=== PATIENT | male | born 1990 | race African-American/Black ===

== ENCOUNTER 2017-01-02 09:40 | Emergency (ER) | payer MEDICAID ==
[~2017-01-02] VITALS: Ht 180.3 cm; Wt 89.0 kg
[2017-01-02] MEDS ORDERED: SODIUM CHLORIDE 0.9% 1,000 ML IV ONE (09:51)
[2017-01-02] MEDS ORDERED: LORAZEPAM 2MG/ML CPJ ONE (09:58)
[2017-01-02] MEDS ORDERED: OLANZAPINE 10 MG/VIAL IM ONE (10:00)
[2017-01-02] MEDS ORDERED: LORAZEPAM 2MG/ML CPJ IM ONE (10:00)
[2017-01-02 10:09] LABS: BASOPHILS % 1.2 % (0.0-2.0); EOSINOPHILS % 0.5 % (0.0-5.0); HEMATOCRIT. 42.8 % (42.0-52.0); HEMOGLOBIN. 14.9 g/dL (14.0-18.0); LYMPHOCYTES % 41.6 % (20.0-50.0); MEAN CORPUSCULAR HEMOGLOBIN 29.5 pg (28.0-32.0); MEAN CORPUSCULAR VOLUME 84.5 fL (80.0-94.0); MEAN PLATELET VOLUME 7.4 fl (7.4-10.4); MONOCYTES % 8.2 % (2.0-8.0); NEUTROPHILS % 48.5 % (40.0-76.0); PLATELET 283 x1000/uL (130-400); RED BLOOD CELL COUNT 5.07 mill/uL (4.7-6.1); RED CELL DISTRIBUTION WIDTH 13.5 % (11.6-14.6)
[2017-01-02 10:22] LABS: CARBON DIOXIDE 25 mEq/L (21-32); CHLORIDE 105 mEq/L (98-107); ETHANOL BLOOD 227 mg/dL
[2017-01-02 11:14] LABS: *AMPHETAMINES SCREEN URINE NEGATIVE (NEGATIVE); *BARBITURATES SCREEN URINE NEGATIVE (NEGATIVE); *BENZODIAZEPINES SCREEN URINE NEGATIVE (NEGATIVE); *COCAINE SCREEN URINE PRESUMTIVE POSITIVE (NEGATIVE); CANNABINOID URINE SCREEN NEGATIVE (NEGATIVE); METHADONE URINE SCREEN NEGATIVE (NEGATIVE); OPIATES URINE SCREEN NEGATIVE (NEGATIVE); PHENCYCLIDINE URINE SCREEN NEGATIVE (NEGATIVE)
[2017-01-02 18:08] VITALS: BP 118/72
== END 2017-01-02 18:21 | disposition home or self-care (01) ==
LOC: ER 10:00
DX: R41.82 Altered mental status, unspecified (principal); F10.129 Alcohol abuse with intoxication, unspecified; F14.10 Cocaine abuse, uncomplicated
CPT/HCPCS: 36415; 80048; 80305; 80307; 80329; 85025; 96360; 96361; 96372; 99285; G0482; J2060; J3490; Z7610; J7030